=== PATIENT | female | born 1930 | race Caucasian/White ===

== ENCOUNTER 2016-08-27 13:20 | Observation (INO) | payer MEDICARE, BC ==
--- NOTE | ~2016-08-27 | DS ---
Discharge Summary [facility] [address] [place]. [address] NAME: MEREDITH DE LOS SANTOS : 34 STATUS : DIS Juno PAT#: [id number] AGE: 86 ADM/REG DATE : 08/27/16 MR#: [id number] REPORT SERV DATE: 08/29/16 DICTATED BY: SENDY BURNS DATE: 08/28/16 REPORT STATUS : Draft TRANSCRIBED BY: MODL DATE: 08/28/16 ADMISSION DATE: 08/27/2016 DISCHARGE DATE: 08/28/2016 DISCHARGE DIAGNOSES: 1. Uncontrolled hypertension. 2. Acute on chronic headaches. 3. Chronic pain involving fibromyalgia, scoliosis, headaches. 4. Previous transient ischemic attack by history. 5. History of gastroesophageal reflux disease and previous peptic ulcer and passed common bile duct stone removed by ERCP. 6. History of obstructive sleep apnea. HISTORY: The patient goes to chronic pain management Dr. 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 She has chronic pain. She has significant scoliosis. She has fibromyalgia. She has had about a month or more of daily headaches. It maybe longer than that. She has also noticed in the last three days, her systolic was running much higher, one she states was up as high as 230. She came to the ER. Blood pressure was running between 187 and 193 range with diastolics in the 70s. The emergency room asked to keep her in observation status. The patient has had a CT scan of the brain without contrast. This just revealed age related mild atrophy and chronic white matter changes. Chest x-ray, portable and PA and lateral, unremarkable other than scoliosis of her thoracolumbar spine. The patient's sedimentation rate was checked to look for evidence of temporal arteritis. Her sedimentation rate was 16. She has been afebrile. Her white count has been between 3.6 and 4.1. Creatinine was 0.69 at discharge, potassium is 3.4 with sodium 144. The patient recalls in the past that for blood pressure, she used to take a half of a chlorthalidone tablet 25 mg cut in half, so equaling 12.5 mg daily. She is not sure why she came off this. I do not see any hyponatremia on the past records other than one time on 10/11/2008 and no hypokalemia either. It is possible that her PCP did not want her to take it because if it drops, her sodium might impact her cardiac conduction and increase QT prolongation while she is taking perphenazine/amitriptyline combination. But blood pressure control at this point in time is the bean issue, so we will add chlorthalidone half of a 25 mg tablet and because her blood pressure is so significantly above the goal for her, we will add a second agent Norvasc as well. PCP will see her in followup next week. Patient will take with her results of her daily blood pressure readings. PCP to assess whether the patient needs to stay on perphenazine/amitriptyline in combination with these new medications. At discharge, she is ambulatory, alert, minimal headache. No chest pain. No shortness of breath. Her cardiac enzymes were normal. Her 12-lead EKG revealed a right bundle-branch Discharge Summary [address] [address] NAME: MEREDITH DE LOS SANTOS : 34 STATUS : DIS Juno PAT#: [id number] AGE: 86 ADM/REG DATE : 08/27/16 MR#: [id number] REPORT SERV DATE: 08/29/16 DICTATED BY: SENDY BURNS DATE: 08/28/16 REPORT STATUS : Draft TRANSCRIBED BY: JOHN DATE: 08/28/16 block pattern, which was stable from her EKG of 10/10/2013. DISCHARGE MEDICATIONS: Norvasc 5 mg daily (new medication added for blood pressure control). Chlorthalidone 25 mg half tablet every morning (new medication added for blood pressure control). Aspirin 81 mg daily, Coreg 12.5 mg b.i.d., Restasis ophthalmic one drop both eyes b.i.d., Cymbalta 30 mg daily, gabapentin 200 mg b.i.d., [place] 7.5/325 q.i.d. p.r.n. pain, lisinopril 40 mg daily, MS Contin 15 mg q.12 hours (chronic medicine), Zocor 40 mg at bedtime, Tylenol, we asked her to reduce from 4000 mg a day down to 650 mg every 6 hours since she takes the hydrocodone with acetaminophen already. She is also on perphenazine/amitriptyline 10/20, she reportedly takes 2 tablets at bedtime chronically. She is to have a followup next week with Dr. Sendy Garza in the office. JOHNNYG/JOHN Sendy Burns M.D. / [id number] CC: Kristine George M.D.
--- NOTE | ~2016-08-27 | HP ---
History And Physical [address] [address] NAME: MEREDITH DE LOS SANTOS : 34 STATUS : ADM Juno PAT#: [id number] AGE: 86 ADM/REG DATE : 08/27/16 MR#: [id number] REPORT SERV DATE: 08/28/16 DICTATED BY: YOGI SERRANO DATE: 08/27/16 REPORT STATUS : Draft TRANSCRIBED BY: MODL DATE: 08/27/16 DATE OF ADMISSION: 08/27/2016 CHIEF COMPLAINT: An 86-year-old female presenting with headache and uncontrolled hypertension. HISTORY OF PRESENT ILLNESS: The patient's history was obtained through careful interview with the patient, coupled with review of [facility] medical records. The patient has been feeling "just tired" with increasing fatigue for about two or three weeks. She has also had increase in her chronic headache, in the last three or four days has become unbearable. She describes the headache in her forehead radiating to bilateral temples, a throbbing quality, 10/10 severity at times. She has had a slight nonproductive nighttime cough and today just developed a sore throat. No nausea or vomiting. No shortness of breath. No chest pain. No fevers or chills. No change in urine habit. No diarrhea. No constipation. No lower extremity edema. No weight loss. REVIEW OF SYSTEMS: Otherwise, complete review of systems was obtained and was negative. PAST MEDICAL HISTORY: 1. Transient ischemic attack. 2. Hypertension. 3. Elevated cholesterol. 4. Fibromyalgia with chronic pain management. 5. Gastroesophageal reflux disorder. 6. Esophageal web. 7. Peptic ulcer disease in [address] Calvin. 8. Irritable bowel syndrome. 9. Radial nerve palsy. 10.Depression and anxiety. 11.Migraine headaches. 12.Obstructive sleep apnea. 13.Urinary tract infections. 14.Choledocholithiasis. 15.History of ERCP. PAST SURGICAL HISTORY: 1. Cholecystectomy. 2. Appendectomy. 3. Hysterectomy with oophorectomy. History And Physical [address] [address] NAME: MEREDITH DE LOS SANTOS : 34 STATUS : ADM Juno PAT#: [id number] AGE: 86 ADM/REG DATE : 08/27/16 MR#: [id number] REPORT SERV DATE: 08/28/16 DICTATED BY: YGOI SERRANO DATE: 08/27/16 REPORT STATUS : Draft TRANSCRIBED BY: JOHN DATE: 08/27/16 4. Bilateral knee surgery. ALLERGIES: TO PENTAZOCINE, CODEINE, OXYCODONE, DARVON, AND ASPIRIN. SOCIAL HISTORY: Quit smoking more than 30 years ago. No alcohol abuse. Lives in [place], [place]. She is a . Lives with two sons. She is a retired nurse. Has one daughter who lives in [place], [place]. FAMILY HISTORY: Mother with congestive heart failure and renal disease, at 89 years of age. Brother with COPD and alcoholism with diabetes. Father with COPD, stroke, and prostate cancer. Sister with heart disease, breast cancer, and stroke. CURRENT MEDICATIONS: 1. Some kind of sleep medication. 2. Zocor 40 mg p.o. daily. 3. MS Contin 15 mg p.o. b.i.d. 4. Lisinopril 40 mg p.o. daily. 5. Tylenol. 6. Aspirin 81 mg daily. 7. Coreg 12.5 mg p.o. b.i.d. 8. Eye drops. 9. Cymbalta 30 mg p.o. daily. 10.Neurontin 200 mg p.o. b.i.d. 11.Hydrocodone p.r.n. PHYSICAL EXAMINATION: VITAL SIGNS: Temperature 98.1, pulse 57, blood pressure 193/79, respiratory rate 16, and O2 saturation 99% on room air. GENERAL: A pleasant, cooperative female. She describes distress from her headache. HEENT: Pupils equal, round, and reactive to light. No conjunctival pallor. No scleral icterus. Nares are patent. Oropharynx is clear of obstruction. Moist mucous membranes. NECK: Trachea midline. No thyromegaly. LYMPH: No cervical lymphadenopathy. No supraclavicular lymphadenopathy. RESPIRATORY: Clear to auscultation at bases. No wheezes, no rales, no rhonchi. Normal respiratory effort. CARDIOVASCULAR: Bradycardic. Regular rhythm. No murmurs, rubs, or gallops. No extremity edema is appreciated. ABDOMEN: Soft, nontender, and nondistended. Normal bowel sounds auscultated throughout. No organomegaly. DERMATOLOGICAL: Warm and dry extremities. No pallor. No cyanosis. PSYCHIATRIC: Normal affect. Good mood. Alert and oriented x3. LABORATORY DATA: White blood cell count 3.6, hemoglobin 12, hematocrit 37, and platelets 172. Sodium 143, potassium 3.8, chloride 106, bicarb 28, BUN 14, creatinine 0.76, and glucose 93. History And Physical [address] [address] NAME: MEREDITH DE LOS SANTOS : 34 STATUS : ADM Juno PAT#: [id number] AGE: 86 ADM/REG DATE : 08/27/16 MR#: [id number] REPORT SERV DATE: 08/28/16 DICTATED BY: YOIG SERRANO DATE: 08/27/16 REPORT STATUS : Draft TRANSCRIBED BY: JOHN DATE: 08/27/16 Brain natriuretic peptide 368. Troponin negative. INR 1.1. ESR 16. STUDIES: 1. Chest x-ray by my own evaluation shows no acute cardiopulmonary process. No evidence of congestive heart failure. 2. EKG by my own evaluation shows sinus rhythm, right bundle-branch block. 3. CT scan of the brain without contrast shows no acute intracranial process. ASSESSMENT AND PLAN: 1. Uncontrolled hypertension. Add nitro paste, p.r.n. hydralazine. 2. Severe headache. Negative ESR, this should rule out temporal arteritis. Negative CT scan of the brain. Use p.r.n. medications for pain for hypertension. 3. Leukopenia. KPL/MODL Yogi Serrano M.D. / [id number] CC: Valente Roberts Jr, MD Richard Forrest Sowell, M.D.
[2016-08-27 12:42] LABS: ALKALINE PHOSPHATASE 77 U/L (45-117); CALCIUM, SERUM 8.7 MG/DL (8.5-10.4); CHLORIDE, SERUM 107 MMOL/L (96-112); CHOLESTEROL 163 MG/DL (< 200); CO2 (CARBON DIOXIDE) 30 MMOL/L (24-34); CREATININE 0.82 MG/DL (0.55-1.02); GFR AFRICAN AMERICAN 76 ML/MIN (>=60); GFR NON AFRICAN AMERICAN 66 ML/MIN (>=60); POTASSIUM, SERUM 4.2 MMOL/L (3.5-5.3); SGOT(AST) 24 U/L (5-40); SGPT(ALT) 17 U/L (5-65); SODIUM, SERUM 144 MMOL/L (135-148); TOTAL BILIRUBIN 0.2 MG/DL (0-1.2); TOTAL PROTEIN 7.3 G/DL (6.0-8.5); TRIGLYCERIDE 173 MG/DL (< 150); TROPONIN I <0.02 NG/ML (<0.05)
[2016-08-27 13:05] LABS: HEMATOCRIT 38.5 % (36.0-48.0); HEMOGLOBIN 12.6 g/dL (12.0-16.0); MEAN CORPUS HGB CONC 32.6 g/dL (32.0-36.0); MEAN CORPUSCULAR HEMOGLOB 31.9 pg (26.0-34.0); MEAN CORPUSCULAR VOLUME 97.7 fL (80-100); MEAN PLATELET VOLUME 8.5 fL (6.8-10.8); PLATELET COUNT 166 10/3/uL (150-400); RBC DISTRIBUTION WIDTH 14.2 % (12.0-16.0); RED CELL COUNT 3.94 10/6/uL (4.0-5.6); WHITE BLOOD CELLS 3.6 10/3/uL (4.5-10.5)
[2016-08-27 13:06] LABS: SED RATE 16 MM/HR (0-20)
[2016-08-27 13:11] LABS: A/G RATIO 1.1 (0.7-1.9); ALBUMIN 3.9 G/DL (3.5-5.0); BUN (BLOOD UREA NITROGEN) 15 MG/DL (6-23); CPK 119 U/L (0-200); GLOBULIN 3.4 G/DL (2.5-4.1); GLUCOSE, SERUM 96 MG/DL (60-99); HDL CHOLESTEROL 82 MG/DL (> 49); LDL CHOLESTEROL 47 MG/DL (< 130); NON-HDL CHOLESTEROL 81 MG/DL (< 160)
[~2016-08-27 13:20] MED LIST: AMIT OR; ASAB PO; COREG12 PO; CYMBALTA60 PO; LISINOPRIL40 MG PO; METHOC750B PO; MSCONT15 PO; NEUR100 PO; NORCO1 TAB PO; ORAMORPH SR15 MG PO; PERPHEN OR; PERPHENAZINE2 MG OR; TRIAVIL 2/25 TA1 TAB OR; ZANTAC150 MG PO; ZOCOR40 PO
[2016-08-27 17:32] LABS: BASOPHILS 0.5 %; BASOPHILS ABSOLUTE 0.02 10/3/uL (0.0-0.16); EOSINOPHILS 3.6 %; EOSINOPHILS ABSOLUTE 0.13 10/3/uL (0.0-0.53); ER CBC TAT 0 Hrs 05 Mins; HEMATOCRIT 37.1 % (36.0-48.0); HEMOGLOBIN 12.3 g/dL (12.0-16.0); LYMPHOCYTES 43.1 %; LYMPHOCYTES ABSOLUTE 1.57 10/3/uL (0.67-4.30); MANUAL DIFF NO %; MEAN CORPUS HGB CONC 33.2 g/dL (32.0-36.0); MEAN CORPUSCULAR HEMOGLOB 32.4 pg (26.0-34.0); MEAN CORPUSCULAR VOLUME 97.6 fL (80-100); MEAN PLATELET VOLUME 9.7 fL (9.2-13.0); MONOCYTES 8.8 %; MONOCYTES ABSOLUTE 0.32 10/3/uL (0.21-1.20); PLATELET COUNT 172 10/3/uL (150-400); RBC DISTRIBUTION WIDTH 13.8 % (12.0-16.0); WHITE BLOOD CELLS 3.6 10/3/uL (4.5-10.5)
[2016-08-27 17:44] LABS: INTERNATIONAL NORMAL RATI 1.1 UNITS (-); PARTIAL THROMBO TIME 25.7 SEC (22.5-37.2); PROTIME (NOT ORD) 13.8 SEC (12.0-14.5)
[2016-08-27 17:46] LABS: BUN (BLOOD UREA NITROGEN) 14 MG/DL (6-23); CALCIUM, SERUM 8.7 MG/DL (8.5-10.4); CHEST PAIN PROFILE TAT 0 Hrs 19 Mins; CHLORIDE, SERUM 106 MMOL/L (96-112); CO2 (CARBON DIOXIDE) 28 MMOL/L (24-34); CREATININE 0.76 MG/DL (0.55-1.02); GFR AFRICAN AMERICAN 83 ML/MIN (>=60); GFR NON AFRICAN AMERICAN 72 ML/MIN (>=60); GLUCOSE, SERUM 93 MG/DL (60-99); POTASSIUM, SERUM 3.8 MMOL/L (3.5-5.3); SODIUM, SERUM 143 MMOL/L (135-148); TROPONIN I <0.02 NG/ML (<0.05)
[2016-08-27] MEDS ORDERED: COREG12 PO (18:08)
[2016-08-27] MEDS ORDERED: LISINOPRIL40 MG PO (18:08)
[2016-08-27] MEDS ORDERED: ASAB PO (18:11)
[2016-08-27] MEDS ORDERED: CYMBALTA30 PO (18:11)
[2016-08-27] MEDS ORDERED: [UNRECOGNIZED DRUG - OTHER] PO (18:11)
[2016-08-27] MEDS ORDERED: ZOCOR40 PO (18:12)
[2016-08-27] MEDS ORDERED: NEUR100 PO (18:12)
[2016-08-27] MEDS ORDERED: NORCO1 TA2 PO (18:13)
[2016-08-27] MEDS ORDERED: MSCONT15 PO (18:14)
[2016-08-27] MEDS ORDERED: ACET500CAP PO (18:15)
[2016-08-27] MEDS ORDERED: RESTASIS OPH (18:19)
[2016-08-28 05:29] LABS: BASOPHILS 0.5 %; BASOPHILS ABSOLUTE 0.02 10/3/uL (0.0-0.16); EOSINOPHILS 4.9 %; HEMATOCRIT 33.9 % (36.0-48.0); HEMOGLOBIN 11.3 g/dL (12.0-16.0); LYMPHOCYTES 43.2 %; LYMPHOCYTES ABSOLUTE 1.78 10/3/uL (0.67-4.30); MEAN CORPUS HGB CONC 33.3 g/dL (32.0-36.0); MEAN CORPUSCULAR HEMOGLOB 32.7 pg (26.0-34.0); MEAN PLATELET VOLUME 9.3 fL (9.2-13.0); MONOCYTES 6.8 %; MONOCYTES ABSOLUTE 0.28 10/3/uL (0.21-1.20); NEUTROPHILS 44.6 %; NEUTROPHILS ABSOLUTE 1.84 10/3/uL (2.02-8.40); PLATELET COUNT 164 10/3/uL (150-400); RBC DISTRIBUTION WIDTH 13.9 % (12.0-16.0); RED CELL COUNT 3.46 10/6/uL (4.0-5.6); WHITE BLOOD CELLS 4.1 10/3/uL (4.5-10.5)
[2016-08-28 05:33] LABS: INTERNATIONAL NORMAL RATI 1.2 UNITS (-); PROTIME (NOT ORD) 15.2 SEC (12.0-14.5)
[2016-08-28 05:35] LABS: MANUAL DIFF NO %
[2016-08-28 05:37] LABS: PARTIAL THROMBO TIME 31.1 SEC (22.5-37.2)
[2016-08-28 05:43] LABS: BUN (BLOOD UREA NITROGEN) 14 MG/DL (6-23); CALCIUM, SERUM 8.5 MG/DL (8.5-10.4); CHLORIDE, SERUM 107 MMOL/L (96-112); CO2 (CARBON DIOXIDE) 27 MMOL/L (24-34); CREATININE 0.69 MG/DL (0.55-1.02); GFR AFRICAN AMERICAN 93 ML/MIN (>=60); GFR NON AFRICAN AMERICAN 80 ML/MIN (>=60); GLUCOSE, SERUM 87 MG/DL (60-99); POTASSIUM, SERUM 3.7 MMOL/L (3.5-5.3); SGOT(AST) 19 U/L (5-40); SGPT(ALT) 12 U/L (5-65); SODIUM, SERUM 144 MMOL/L (135-148); TOTAL BILIRUBIN 0.5 MG/DL (0-1.2); TOTAL PROTEIN 6.4 G/DL (6.0-8.5); TROPONIN I <0.02 NG/ML (<0.05)
[2016-08-28 05:44] LABS: A/G RATIO 0.9 (0.7-1.9); ALBUMIN 3.1 G/DL (3.5-5.0); ALKALINE PHOSPHATASE 62 U/L (45-117); GLOBULIN 3.3 G/DL (2.5-4.1)
[2016-08-28 06:32] LABS: ASCORBIC ACID (UR NOT ORDER) NEG (NEG); BILIRUBIN, URINE NEGATIVE (NEG); KETONE, URINE NEGATIVE (NEG); LEUKOCYTE ESTERASE(NOT OR NEG (NEG); WBC (NOT ORDERED) (RFLEX) < 1 (0-5)
[2016-08-28] MEDS ORDERED: HYGROTON 25 MG25 MG PO (12:30)
[2016-08-28] MEDS ORDERED: NORV5 PO (12:31)
== END 2016-08-28 13:08 | disposition home or self-care (01) ==
LOC: ER 13:20 → CDU1 18:12 → CDU2 19:52
PROVIDERS: Hospitalist; Internal Medicine; Nurse Practitioner
DX: I10 Essential (primary) hypertension (principal); R51 Headache; D72.819 Decreased white blood cell count, unspecified; E78.00 Pure hypercholesterolemia, unspecified; K21.9 Gastro-esophageal reflux disease without esophagitis; F32.9 Major depressive disorder, single episode, unspecified; F41.9 Anxiety disorder, unspecified; G47.33 Obstructive sleep apnea (adult) (pediatric); Z87.440 Personal history of urinary (tract) infections; Z90.49 Acquired absence of other specified parts of digestive tract; Z90.710 Acquired absence of both cervix and uterus; Z98.890 Other specified postprocedural states; Z88.5 Allergy status to narcotic agent; Z88.8 Allergy status to other drugs, medicaments and biological substances; Z79.82 Long term (current) use of aspirin; Z79.899 Other long term (current) drug therapy; Z86.73 Personal history of transient ischemic attack (TIA), and cerebral infarction without residual deficits; Z87.891 Personal history of nicotine dependence
CPT/HCPCS: 70450; 71010; 71020; 80048; 80053; 80061; 81001; 82550; 83735; 83880; 84443; 84484; 85025; 85027; 85610; 85652; 85730; 87086; 93005; 96372; 96374; 99285; A9270-GY; G0378; J0360